=== PATIENT | male | born 1990 | race Caucasian/White ===

== ENCOUNTER 2016-10-08 07:53 | Emergency (ER) | payer OTHER ==
[~2016-10-08] VITALS: Ht 185.4 cm; Wt 77.4 kg
[~2016-10-08 07:53] MED LIST: MIRALAX255 GM PO; MOTRIN800 MG PO
[2016-10-08 08:42] LABS: HEMATOCRIT 42.2 % (38.0-50.0); MCH 30.4 PG (29.0-34.0); MCHC 35.3 G/DL (30.0-36.0); MCV 86.1 FL (86-99); MEAN PLAT.VOLUME 11.4 uM^3 (9.0-12.4); PLATELET COUNT 199 K/uL (156-360); RBC DIS.WIDTH-CV 12.6 % (11.8-14.6); RBC DIS.WIDTH-SD 38.8 % (39-53); WHITE BLOOD COUNT 22.5 K/uL (4.1-10.2)
[2016-10-08 08:51] LABS: ADD MIUA? YES; BILIRUBIN NEGATIVE; BLOOD NEGATIVE; COLOR YELLOW ((YELLOW)); GLUCOSE (STRIP) NEGATIVE; KETONES NEGATIVE; LEUKOCYTES NEGATIVE; NITRITE NEGATIVE; PROTEIN (STRIP) 30; SPECIFIC GRAVITY 1.014 (1.000-1.030); UROBILINOGEN 0.2 MG/DL (0.2-1.0)
[2016-10-08 08:55] LABS: CHLORIDE 108 mEq/L (99-109); POTASSIUM 4.2 mEq/L (3.7-5.4); SODIUM 147 mEq/L (136-147)
[2016-10-08 08:58] LABS: GLUCOSE 103 mg/dL (70-99)
[2016-10-08 08:58] LABS: BACTERIA 3+ /HPF; EPITHELIAL CELLS RARE /HPF; HYALINE CASTS 40-50 /LPF; MUCUS NONE SEEN /LPF; RED BLOOD CELLS 0-5 /HPF (0-5)
[2016-10-08 08:59] LABS: ANION GAP 18 MEQ/L (2-14); TOTAL BILIRUBIN 0.4 mg/dL (0.0-1.0)
[2016-10-08 09:00] LABS: ADD MEDTOX COMMENT Y; AMPHETAMINE NEGATIVE (500 ng/mL); BARBITURATES NEGATIVE (200 ng/mL); BENZODIAZEPINES NEGATIVE (150 ng/mL); COCAINE NEGATIVE (150 ng/mL); INTERNAL CONTROLS VALID? YES; METHADONE NEGATIVE (200 ng/mL); METHAMPHETAMINE NEGATIVE (500 ng/mL); OPIATES (MORPHINE) NEGATIVE (100 ng/mL); OXYCODONE PRESUMPTIVE POSITIVE (100 ng/mL); PHENCYCLIDINE NEGATIVE (25 ng/mL); PROPOXYPHENE NEGATIVE (300 ng/mL); THC CANNABINOIDS PRESUMPTIVE POSITIVE (50 ng/mL); TRICYCLIC ANTIDEPRESSANTS NEGATIVE (300 ng/mL)
[2016-10-08 09:00] LABS: SERUM ETHYL ALCOHOL < 10 mg/dL
[2016-10-08 09:01] LABS: GFR ESTIMATE (CALCULATED) 52 mL/min/
[2016-10-08 09:02] LABS: ALKALINE PHOSPHATASE 65 IU/L (3-129)
[2016-10-08 09:03] LABS: UREA NITROGEN (BUN) 22 mg/dL (9-23)
[2016-10-08 09:05] LABS: SALICYLATE < 5.0 MG/DL (15-30)
[2016-10-08 09:46] LABS: CREATINE KINASE 152 IU/L (1-294)
[2016-10-08 09:51] LABS: TROP-I INTERPRETATION NEGATIVE; TROPONIN-I < 0.01 ng/mL (0.0-0.30)
[2016-10-08] MEDS ORDERED: NARCAN4 MG NS (09:54)
[2016-10-08] MEDS ORDERED: LEVAQUIN750 MG PO (11:01)
[2016-10-08 12:13] VITALS: BP 97/59
== END 2016-10-08 12:14 | disposition home or self-care (01) ==
LOC: EME → EDBD 07:53 → EME 07:53
PROVIDERS: Emergency Medicine
DX: T40.694A Poisoning by other narcotics, undetermined, initial encounter (principal); N39.0 Urinary tract infection, site not specified
CPT/HCPCS: 80053; 81003; 82550; 84484; 84999; 85027; 93005; 99281; 99285; G0480; J2310; J2405; J7030